=== PATIENT | male | born 1995 | race Two or more races ===

== ENCOUNTER 2022-12-27 11:35 | Emergency (ER) | payer SELFPAY ==
[~2022-12-27] VITALS: Ht 172.7 cm; Wt 96.0 kg
[2022-12-27] MEDS ORDERED: TETANUS-DIPTH-ACEL PERTUSSIS 0.5ML SYR Tdap IM ONE (13:15)
[2022-12-27] MEDS ORDERED: KETOROLAC TROMETH 60MG/2ML VIAL IM ONE (13:15)
[2022-12-27 13:16] VITALS: BP 144/85; PULSE 107; RESP 18; TEMP 98; O2SAT 100
[2022-12-27] MEDS ORDERED: AUG875T PO (13:40)
[2022-12-27] MEDS ORDERED: IBUP-1455 PO (13:40)
[2022-12-27] MEDS ORDERED: ACE3T PO (13:40)
== END 2022-12-27 13:58 | disposition home or self-care (01) ==
LOC: ER 11:35
DX: K04.7 Periapical abscess without sinus (principal); K02.9 Dental caries, unspecified
CPT/HCPCS: 90471; 90715; 96372; 99284; J1885